=== PATIENT | male | born 1985 | race African-American/Black ===

== ENCOUNTER 2017-02-23 12:53 | Emergency (ER) | payer MEDICAID ==
[~2017-02-23] VITALS: Ht 182.9 cm; Wt 72.6 kg
[2017-02-23 12:48] VITALS: BP 134/98
--- NOTE | 2017-02-23 13:12 | Emergency Room Report ---
History of Present Illness General Chief Complaint: Chest Pain Source: Patient, EMS Present Illness HPI Patient presents with chest pain. Feels pressure. He feels a lot of stress at this time. His been smoking methamphetamine. He states he stopped yesterday. Also takes psychiatric medications is supposed to be on Seroquel and gabapentin. His last doses were 2 days ago. He denies suicidality at the moment but says that he had thoughts of ending his life in the past but not recently. He apparently was seen at [facility] earlier today. He left there refusing treatment. Paramedics transported the patient. He refused IV in the field. No fevers, cough, NVD, dysuria, trauma. Allergies: Coded Allergies: HALOPERIDOL (Verified Allergy, Unknown, 02/23/17) OLANZAPINE (Verified Allergy, Unknown, 02/23/17) Patient History Past Medical History: see triage record Social History: Reports: drug use, smoking Social History Narrative from [facility] Reviewed Nursing Documentation: PMH: Agreed, PSxH: Agreed Nursing Documentation-PM Past Medical History: No History, Except For History Of Psychiatric Problem: Yes - schizophrenia, bipolar Review of Systems All Other Systems: negative except mentioned in HPI Physical Exam Vital Signs Date Time Temp Pulse Resp B/P Pulse Ox O2 Delivery O2 Flow Rate FiO2 02/23/17 12:48 98.2 98 20 134/98 97 Room Air Sp02 EP Interpretation: reviewed, normal General Appearance: well appearing, no apparent distress, GCS 15 Head: normocephalic Eyes: bilateral eye PERRL, bilateral eye normal inspection ENT: moist mucus membranes Neck: supple Respiratory: lungs clear, normal breath sounds Cardiovascular #1: regular rate, rhythm Cardiovascular #2: 2+ radial (R) Gastrointestinal: normal inspection, normal bowel sounds, non tender, no mass, non-distended Musculoskeletal: back normal, gait/station normal, normal range of motion Neurologic: alert, oriented x3, grossly normal Psychiatric: no suicidal/homicidal ideation - has had thoughts, not now and not with plan, depressed affect, anxious Reflexes: 2+ knee (R), 2+ knee (L) Skin: normal inspection, warm/dry, other - picking disease Medical Decision Making Diagnostic Impression: Primary Impression: Chest pain Qualified Codes: R07.9 - Chest pain, unspecified Additional Impressions: Left against medical advice Amphetamine abuse ER Course The patient presents with chest pain. He has been using methamphetamine. He also feels psychiatrically pressured. Differential includes acute myocardial infarction, costochondritis, bronchitis, pneumonia, pneumothorax, anxiety amongst others. Evaluation of the EKG labs including CK to rule out rhabdomyolysis. The patient will be treated with IV hydration Ativan and probably a dose of Seroquel. The patient is reluctant to stay in the bed. He needs to get cardiac monitoring and evaluation. Not suicidal at this time. He initially agreed to be observed but then refused IV and labs. EKG without injury and CXR normal. Patient refuses evaluation. Told of risk of renal failure and . He understands but refuses IV and labs. He insisted on leaving against medical advice. EKG Diagnostic Results Rate: tachycardiac ST Segments: no acute changes Rhythm Strip Diag. Results EP Interpretation: yes Rhythm: no PVC's, no ectopy, other - Sinus tachycardia Chest X-Ray Diagnostic Results Chest X-Ray Diagnostic Results : Chest X-Ray Ordered: Yes # of Views/Limited/Complete: 1 View Indication: Chest Pain EP Interpretation: Yes Interpretation: no consolidation, no effusion, no pneumothorax Impression: No acute disease Interpreting ER Provider: signed Wilbur Jones MD Status: unchanged Disposition: AGAINST MEDICAL ADVICE Condition: Unknown Wilbur Jones M.D. Feb 23, 2017 13:12
[2017-02-23] MEDS ORDERED: LORazepam Inj 2mg/ml 1ml IV ONE (13:15)
[2017-02-23 13:45] VITALS: BP 129/95
--- NOTE | 2017-02-23 16:22 | Diagnostic Imaging Report ---
Indication: Chest pain Technique: One view of the chest Comparison: none Findings: Lungs and pleural spaces are clear. Heart size is normal. Impression: No acute process
--- NOTE | 2017-02-24 16:50 | Cardiology Report ---
APPROVED REPORT EKG Measurement Heart [id number] Normal sinus rhythm Normal ECG
== END 2017-02-23 13:30 | disposition home or self-care (01) ==
LOC: EDBD 12:53 → EMR 13:30
DX: R07.9 Chest pain, unspecified (principal); F15.10 Other stimulant abuse, uncomplicated; Z88.8 Allergy status to other drugs, medicaments and biological substances; F17.200 Nicotine dependence, unspecified, uncomplicated; R00.0 Tachycardia, unspecified
CPT/HCPCS: 71010; 93005; 96360; 96375